=== PATIENT | male | born 1995 | race Two or more races ===

== ENCOUNTER 2018-08-30 07:22 | Emergency (ER) | payer OTHER ==
[~2018-08-30] VITALS: Ht 175.3 cm; Wt 86.2 kg
[2018-08-30 07:37] VITALS: BP 125/62
[2018-08-30] MEDS ORDERED: LIDOCAINE 1% HCL (LOCAL ANESTH.) INJ 20ML MDV ONE (09:02)
[2018-08-30] MEDS ORDERED: LIDOCAINE 1% (LOCAL ANESTH.) PF 5ml SDV ID ONE (09:15)
[2018-08-30] MEDS ORDERED: TETANUS-DIPTH-ACEL PERTUSSIS 0.5ML SYRG IM ONE (09:15)
[2018-08-30] MEDS ORDERED: BACITRACIN TOP OINT 1 UD PKG TOP ONE (09:15)
== END 2018-08-30 09:49 | disposition home or self-care (01) ==
LOC: ER 07:22
DX: S61.212A Laceration without foreign body of right middle finger without damage to nail, initial encounter (principal); W45.8XXA Other foreign body or object entering through skin, initial encounter; Y93.89 Activity, other specified; Y92.89 Other specified places as the place of occurrence of the external cause; Y99.8 Other external cause status
CPT/HCPCS: 12001; 90471; 90715; 99283; J2001